=== PATIENT | female | born 1945 | race Caucasian/White ===

== ENCOUNTER 2024-10-13 09:52 | Emergency (ER) | payer MEDICAID ==
[~2024-10-13] VITALS: Ht 152.4 cm; Wt 61.0 kg
[2024-10-13 10:03] VITALS: O2SAT 100
[2024-10-13 10:36] LABS: BASOPHILS % 0.5 % (0.0-2.0); EOSINOPHILS % 2.6 % (0.0-5.0); HEMATOCRIT. 47.2 % (36.0-48.0); HEMOGLOBIN. 16.3 g/dL (12.0-16.0); LYMPHOCYTES % 34.5 % (20.0-50.0); MEAN PLATELET VOLUME 9.5 fl (7.4-10.4); MONOCYTES % 8.5 % (2.0-8.0); NEUTROPHILS % 53.9 % (40.0-76.0); PLATELET 181 x1000/uL (130-400); RED BLOOD CELL COUNT 5.27 mill/uL (4.2-5.4); RED CELL DISTRIBUTION WIDTH 14.1 % (11.6-14.6)
[2024-10-13 10:45] LABS: CREATININE 0.9 mg/dL (0.6-1.0); UREA NITROGEN BLOOD 12 mg/dL (9-23)
[2024-10-13] MEDS ORDERED: POTA-205 MT (11:01)
[2024-10-13] MEDS: POTASSIUM CHLORIDE 20MEQ/PACKET PO ONE (11:08)
[2024-10-13 11:23] VITALS: BP 161/74; PULSE 89; RESP 18; TEMP 36.7; O2SAT 100
== END 2024-10-13 11:27 | disposition home or self-care (01) ==
LOC: ER 09:52
DX: E87.6 Hypokalemia (principal); I10 Essential (primary) hypertension; Z79.899 Other long term (current) drug therapy
CPT/HCPCS: 36415; 80048; 85025; 93005; 99284